=== PATIENT | male | born 1955 | race Caucasian/White ===

== ENCOUNTER → 2019-05-27 | Outpatient (CLI) | payer OTHER | LOC: CAT 08:02 | DX: Z13.6 Encounter for screening for cardiovascular disorders (principal); E78.00 Pure hypercholesterolemia, unspecified; I25.10 Atherosclerotic heart disease of native coronary artery without angina pectoris ==

== ENCOUNTER → 2021-01-09 | Outpatient (CLI) | payer OTHER | LOC: SJCVCIMAG 10:01 | PROVIDERS: ATTEND Internal Medicine Cardiovascular Disease | DX: I34.0 Nonrheumatic mitral (valve) insufficiency (principal); I10 Essential (primary) hypertension; I25.10 Atherosclerotic heart disease of native coronary artery without angina pectoris; R06.00 Dyspnea, unspecified ==